=== PATIENT | male | born 1990 | race African-American/Black ===

== ENCOUNTER 2016-04-10 18:10 | Emergency (ER) | payer OTHER ==
--- NOTE | 2016-04-10 22:06 | EDDOCDS ---
Physician Documentation [facility] Name: Bradley Steele Age: 25 yrs Sex: Male : 1990 Arrival Date: 04/10/2016 Time: 18:10 Bed 30 Private MD: SCKelton JACKSON Disposition: 04/10 21:43 Critical Care: Critical care not applicable. pc Disposition: 04/10/16 21:45 Discharged to Home/Self Care. Impression: Anxiety disorder, unspecified, Conversion disorder with mixed symptom presentation. - Condition is Stable. - Discharge Instructions: Generalized Anxiety Disorder, Conversion Disorder. - Medication Reconciliation, Local Pharmacy Hours form. - Follow up: Kelton Rodriguez, Behavioral Health; When: Tomorrow; Reason: Recheck today's complaints, Continuance of care. - Problem is new. - Symptoms are unchanged. HPI: 19:06 This 25 yrs old Male presents to ER via Walkin/Carried/Asstd with pc complaints of Psych Problem. 19:06 The history is obtained from the patient. He has been started on clonazepam recently and now reports he sleep walks, carrying a knife. Of note, he has been diagnosed as a malingerer, with multiple complaints of seizures and black out episodes, all of which have been extensively evaluated and confirmed his psychogenic complaints/malingering. The patient has been recently seen by their primary care provider. Historical: - Allergies: no known allergies; - Home Meds: 1. clonazepam 0.5 mg Oral tab nightly 2. Lexapro 10 mg Oral tab 2 tabs once daily - PMHx: Anxiety; conversion disorder; PTSD; - PSHx: wisdom teeth; - The history from nurses notes was reviewed: and I agree with what is documented. - Social history: Smoking status: Patient states was never smoker of tobacco. No barriers to communication noted, The patient speaks fluent Estonian, Speaks appropriately for age. - Family history: Not pertinent. - : The pt / caregiver states he / she is not on anticoagulants. Home medication list is obtained from the patient. - Hospitalizations: : No recent hospitalization is reported. - Exposure Risk Screening:: None identified. - Immunization history:: All immunizations up-to-date. - Social history:: the patient is a non-smoker, the patient does not drink alcohol. ROS: 19:06 All systems are negative except as listed. The psychiatric and neurological components pc are also addressed in the HPI. Exam: 19:06 General Appearance: alert, no acute distress. pc 19:06 ENT: ear, nose and throat normal, pharynx normal. 19:06 Eyes: pupils equal, round and reactive to light, extraocular motions intact. 19:06 Neck: The exam reveals no acute abnormalities. ROM is normal and painless. No nuchal rigidity is noted.. 19:06 Respiratory: breathing is even and unlabored, breath sounds are normal. 19:06 Cardiovascular: regular pulse rate, regular heart rhythm, normal heart sounds, equal and full pulses bilaterally. 19:06 Abdomen: soft, non-tender, no organomegaly, normal bowel sounds. 19:06 Skin: skin color is normal, warm, dry. 19:06 Extremities: The extremities have a grossly normal appearance, are non-tender, without acute ROM abnormalities. 19:06 Neuro: alert, oriented to person, place and time, cranial nerves normal as tested, no motor deficits, no sensory deficits. 19:06 Psych: mood is normal, affect is appropriate. Vital Signs: 18:10 BP 121 / 58; Pulse 79; Resp 18 S; Temp 98.4(O); Pulse Ox 98% on R/A; Weight 104.33 kg / gr2 230.01 lbs (R); Height 5 ft. 10 in. (177.80 cm) (R); Pain 0/10; 22:03 BP 122 / 57; Pulse 78; Resp 20; Temp 98.2; Pulse Ox 99% on R/A; Pain 0/10; sls1 18:10 Body Mass Index 33.00 (104.33 kg, 177.80 cm) gr2 MDM: 19:06 Differential diagnosis: reported sleep walking after starting new medication. Plan: PFS pc to see, d/c med, f/u PCP in morning. 20:44 Financial registration complete. zo 20:57 [facility] Payment Agreement was scanned into [employer] and attached to record. zo 21:43 The patient has been medically cleared for psychiatric evaluation, admission and/or pc transfer. [employer] Personal Care Device Safe Act reporting: Reporting to the [employer] Personal [employer] Device Safe Act was not completed because the patient did not display any suicidal or homicidal ideation and was not considered a risk to self or others. Data reviewed: old medical records, vital signs, nurses notes. Test interpretation: none. The patient has been re-examined and re-evaluated. The clinical presentation did not require any ED treatment or interventions. Other consultation: The ED structural steel worker apprentice was notified and will evaluate the patient. 21:43 Disposition: The historical points, examination findings, and any diagnostic results pc supporting the provided diagnosis, were discussed with the patient or legal guardian. The need for outpatient follow up with the provider listed on their discharge instructions was discussed. They were encouraged to return to [facility], or the nearest ED, if symptoms worsen/persist, or for any other questions/concerns. 21:54 PSA Outpatient Referrals was scanned into [employer] and attached to record. cs Signatures: Amish Monreal MD MD pc Sharlow, Charlie, PSA PSA cs Carl Cabrera RN RN mlb1 Tess Crump Shannon, RN RN sls1 Josette Mcadams RN RN pml The chart was reviewed and I authenticate all verbal orders and agree with the evaluation and treatment provided.Attachments: 20:57 [facility] Payment Agreement zo MTDD
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
--- NOTE | 2016-04-12 23:06 | EDDOCDS ---
Physician Documentation [facility] Name: Bradley Steele Age: 25 yrs Sex: Male : 1990 Arrival Date: 04/10/2016 Time: 18:10 Bed 30 Private MD: SCKelton JACKSON Disposition: 04/10 21:43 Critical Care: Critical care not applicable. pc Disposition: 04/10/16 21:45 Discharged to Home/Self Care. Impression: Anxiety disorder, unspecified, Conversion disorder with mixed symptom presentation. - Condition is Stable. - Discharge Instructions: Generalized Anxiety Disorder, Conversion Disorder. - Medication Reconciliation, Local Pharmacy Hours form. - Follow up: Kelton Rodriguez, Behavioral Health; When: Tomorrow; Reason: Recheck today's complaints, Continuance of care. - Problem is new. - Symptoms are unchanged. HPI: 19:06 This 25 yrs old Male presents to ER via Walkin/Carried/Asstd with pc complaints of Psych Problem. 19:06 The history is obtained from the patient. He has been started on clonazepam recently and now reports he sleep walks, carrying a knife. Of note, he has been diagnosed as a malingerer, with multiple complaints of seizures and black out episodes, all of which have been extensively evaluated and confirmed his psychogenic complaints/malingering. The patient has been recently seen by their primary care provider. Historical: - Allergies: no known allergies; - Home Meds: 1. clonazepam 0.5 mg Oral tab nightly 2. Lexapro 10 mg Oral tab 2 tabs once daily - PMHx: Anxiety; conversion disorder; PTSD; - PSHx: wisdom teeth; - The history from nurses notes was reviewed: and I agree with what is documented. - Social history: Smoking status: Patient states was never smoker of tobacco. No barriers to communication noted, The patient speaks fluent Yakut, Speaks appropriately for age. - Family history: Not pertinent. - : The pt / caregiver states he / she is not on anticoagulants. Home medication list is obtained from the patient. - Hospitalizations: : No recent hospitalization is reported. - Exposure Risk Screening:: None identified. - Immunization history:: All immunizations up-to-date. - Social history:: the patient is a non-smoker, the patient does not drink alcohol. ROS: 19:06 All systems are negative except as listed. The psychiatric and neurological components pc are also addressed in the HPI. Exam: 19:06 General Appearance: alert, no acute distress. pc 19:06 ENT: ear, nose and throat normal, pharynx normal. 19:06 Eyes: pupils equal, round and reactive to light, extraocular motions intact. 19:06 Neck: The exam reveals no acute abnormalities. ROM is normal and painless. No nuchal rigidity is noted.. 19:06 Respiratory: breathing is even and unlabored, breath sounds are normal. 19:06 Cardiovascular: regular pulse rate, regular heart rhythm, normal heart sounds, equal and full pulses bilaterally. 19:06 Abdomen: soft, non-tender, no organomegaly, normal bowel sounds. 19:06 Skin: skin color is normal, warm, dry. 19:06 Extremities: The extremities have a grossly normal appearance, are non-tender, without acute ROM abnormalities. 19:06 Neuro: alert, oriented to person, place and time, cranial nerves normal as tested, no motor deficits, no sensory deficits. 19:06 Psych: mood is normal, affect is appropriate. Vital Signs: 18:10 BP 121 / 58; Pulse 79; Resp 18 S; Temp 98.4(O); Pulse Ox 98% on R/A; Weight 104.33 kg / gr2 230.01 lbs (R); Height 5 ft. 10 in. (177.80 cm) (R); Pain 0/10; 22:03 BP 122 / 57; Pulse 78; Resp 20; Temp 98.2; Pulse Ox 99% on R/A; Pain 0/10; sls1 18:10 Body Mass Index 33.00 (104.33 kg, 177.80 cm) gr2 MDM: 19:06 Differential diagnosis: reported sleep walking after starting new medication. Plan: PFS pc to see, d/c med, f/u PCP in morning. 20:44 Financial registration complete. zo 20:57 [facility] Payment Agreement was scanned into [employer] and attached to record. zo 21:43 The patient has been medically cleared for psychiatric evaluation, admission and/or pc transfer. [employer] Safe Act reporting: Reporting to the [employer] Safe Act was not completed because the patient did not display any suicidal or homicidal ideation and was not considered a risk to self or others. Data reviewed: old medical records, vital signs, nurses notes. Test interpretation: none. The patient has been re-examined and re-evaluated. The clinical presentation did not require any ED treatment or interventions. Other consultation: The ED anvil worker was notified and will evaluate the patient. 21:43 Disposition: The historical points, examination findings, and any diagnostic results pc supporting the provided diagnosis, were discussed with the patient or legal guardian. The need for outpatient follow up with the provider listed on their discharge instructions was discussed. They were encouraged to return to [facility], or the nearest ED, if symptoms worsen/persist, or for any other questions/concerns. 21:54 PSA Outpatient Referrals was scanned into [employer] and attached to record. cs Signatures: Amish Monreal MD MD pc Sharlow, Charlie, PSA PSA cs Carl Cabrera RN RN mlb1 Tess Crump Shannon, RN RN sls1 Josette Mcadams RN RN pml The chart was reviewed and I authenticate all verbal orders and agree with the evaluation and treatment provided.Attachments: 20:57 [facility] Payment Agreement zo Chart Complete MTDD
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
--- NOTE | 2016-04-12 23:06 | EDDOCDS ---
Physician Documentation [facility] Name: Bradley Steele Age: 25 yrs Sex: Male : 1990 Arrival Date: 04/10/2016 Time: 18:10 Bed 30 Private MD: MAKelton JACKSON Disposition: 04/10 21:43 Critical Care: Critical care not applicable. pc Disposition: 04/10/16 21:45 Discharged to Home/Self Care. Impression: Anxiety disorder, unspecified, Conversion disorder with mixed symptom presentation. - Condition is Stable. - Discharge Instructions: Generalized Anxiety Disorder, Conversion Disorder. - Medication Reconciliation, Local Pharmacy Hours form. - Follow up: Kelton Rodriguez, Behavioral Health; When: Tomorrow; Reason: Recheck today's complaints, Continuance of care. - Problem is new. - Symptoms are unchanged. HPI: 19:06 This 25 yrs old Male presents to ER via Walkin/Carried/Asstd with pc complaints of Psych Problem. 19:06 The history is obtained from the patient. He has been started on clonazepam recently and now reports he sleep walks, carrying a knife. Of note, he has been diagnosed as a malingerer, with multiple complaints of seizures and black out episodes, all of which have been extensively evaluated and confirmed his psychogenic complaints/malingering. The patient has been recently seen by their primary care provider. Historical: - Allergies: no known allergies; - Home Meds: 1. clonazepam 0.5 mg Oral tab nightly 2. Lexapro 10 mg Oral tab 2 tabs once daily - PMHx: Anxiety; conversion disorder; PTSD; - PSHx: wisdom teeth; - The history from nurses notes was reviewed: and I agree with what is documented. - Social history: Smoking status: Patient states was never smoker of tobacco. No barriers to communication noted, The patient speaks fluent Greenlandic, Speaks appropriately for age. - Family history: Not pertinent. - : The pt / caregiver states he / she is not on anticoagulants. Home medication list is obtained from the patient. - Hospitalizations: : No recent hospitalization is reported. - Exposure Risk Screening:: None identified. - Immunization history:: All immunizations up-to-date. - Social history:: the patient is a non-smoker, the patient does not drink alcohol. ROS: 19:06 All systems are negative except as listed. The psychiatric and neurological components pc are also addressed in the HPI. Exam: 19:06 General Appearance: alert, no acute distress. pc 19:06 ENT: ear, nose and throat normal, pharynx normal. 19:06 Eyes: pupils equal, round and reactive to light, extraocular motions intact. 19:06 Neck: The exam reveals no acute abnormalities. ROM is normal and painless. No nuchal rigidity is noted.. 19:06 Respiratory: breathing is even and unlabored, breath sounds are normal. 19:06 Cardiovascular: regular pulse rate, regular heart rhythm, normal heart sounds, equal and full pulses bilaterally. 19:06 Abdomen: soft, non-tender, no organomegaly, normal bowel sounds. 19:06 Skin: skin color is normal, warm, dry. 19:06 Extremities: The extremities have a grossly normal appearance, are non-tender, without acute ROM abnormalities. 19:06 Neuro: alert, oriented to person, place and time, cranial nerves normal as tested, no motor deficits, no sensory deficits. 19:06 Psych: mood is normal, affect is appropriate. Vital Signs: 18:10 BP 121 / 58; Pulse 79; Resp 18 S; Temp 98.4(O); Pulse Ox 98% on R/A; Weight 104.33 kg / gr2 230.01 lbs (R); Height 5 ft. 10 in. (177.80 cm) (R); Pain 0/10; 22:03 BP 122 / 57; Pulse 78; Resp 20; Temp 98.2; Pulse Ox 99% on R/A; Pain 0/10; sls1 18:10 Body Mass Index 33.00 (104.33 kg, 177.80 cm) gr2 MDM: 19:06 Differential diagnosis: reported sleep walking after starting new medication. Plan: PFS pc to see, d/c med, f/u PCP in morning. 20:44 Financial registration complete. zo 20:57 [facility] [place] Agreement was scanned into [employer] and attached to record. zo 21:43 The patient has been medically cleared for psychiatric evaluation, admission and/or pc transfer. [employer] Safe Act reporting: Reporting to the [employer] Safe Act was not completed because the patient did not display any suicidal or homicidal ideation and was not considered a risk to self or others. Data reviewed: old medical records, vital signs, nurses notes. Test interpretation: none. The patient has been re-examined and re-evaluated. The clinical presentation did not require any ED treatment or interventions. Other consultation: The ED damper worker was notified and will evaluate the patient. 21:43 Disposition: The historical points, examination findings, and any diagnostic results pc supporting the provided diagnosis, were discussed with the patient or legal guardian. The need for outpatient follow up with the provider listed on their discharge instructions was discussed. They were encouraged to return to [facility], or the nearest ED, if symptoms worsen/persist, or for any other questions/concerns. 21:54 PSA Outpatient Referrals was scanned into [employer] and attached to record. cs Signatures: Amish Monreal MD MD pc Sharlow, Charlie, PSA PSA cs Carl Caberra RN RN mlb1 Tess Crump Shannon, RN RN sls1 Josette Mcadams RN RN pml The chart was reviewed and I authenticate all verbal orders and agree with the evaluation and treatment provided.Attachments: 20:57 [facility] [place] Agreement zo Chart Complete MTDD
== END 2016-04-10 22:05 | disposition home or self-care (01) ==
LOC: M ED 18:10
DX: F41.9 Anxiety disorder, unspecified (principal); F44.7 Conversion disorder with mixed symptom presentation; F43.10 Post-traumatic stress disorder, unspecified; Z79.899 Other long term (current) drug therapy

== ENCOUNTER → 2016-04-13 | Outpatient (REF) | payer OTHER | LOC: M SFHCLERA 19:28 | PROVIDERS: ATTEND Nurse Practitioner Family | DX: J02.9 Acute pharyngitis, unspecified (principal) ==

== ENCOUNTER 2016-05-23 10:12 | Emergency (ER) | payer OTHER ==
[~2016-05-23] VITALS: Ht 177.8 cm; Wt 108.9 kg
[2016-05-23 10:15] VITALS: BP 118/60
[2016-05-23] MEDS ORDERED: SERO1TAB3 PO (10:23)
[2016-05-23] MEDS ORDERED: PREG25CA PO (10:23)
[2016-05-23] MEDS ORDERED: LEXA1TAB2 PO (10:23)
== END 2016-05-23 10:52 | disposition home or self-care (01) ==
LOC: EDBD 10:12 → M ED 10:37
DX: F44.4 Conversion disorder with motor symptom or deficit (principal); F43.10 Post-traumatic stress disorder, unspecified; F41.9 Anxiety disorder, unspecified; F32.9 Major depressive disorder, single episode, unspecified; Z79.899 Other long term (current) drug therapy

== ENCOUNTER 2016-06-04 06:46 | Emergency (ER) | payer OTHER ==
[~2016-06-04] VITALS: Ht 177.8 cm; Wt 113.4 kg
[~2016-06-04 06:46] MED LIST: LEXA1TAB2 PO; PREG25CA PO; SERO1TAB3 PO
[2016-06-04] MEDS ORDERED: NS 1,000 ML IV ONE (07:30)
--- NOTE | 2016-06-04 08:09 | REP ---
PA and lateral chest: Comparisons 01/10/2016. The lung barrios are clear. The cardiac size is normal The olivia, mediastinum, and bony thorax are unremarkable. Impression: Negative PA and lateral chest. Signed by Brody Oliveira MD 06/04/2016 08:00 A
[2016-06-04 08:16] LABS: BASO % 0.4 % (0.0-1.0); EOS # 0.2 K/mm3 (0.0-0.50); EOS % 3.6 % (0.0-3.0); LARGE UNSTAINED CELL # 0.1 K/mm3 (0.0-0.4); LARGE UNSTAINED CELL % 1.7 % (0.0-4.0); LYMPH # 1.3 K/mm3 (1.5-6.5); LYMPH % 23.1 % (24.0-44.0); MEAN CORPUSCULAR HEMOGLOBIN 28.9 pg (27.0-33.0); MEAN CORPUSCULAR VOLUME 90.4 fl (80.0-96.0); MONO # 0.4 K/mm3 (0.0-0.8); MONO % 8.1 % (0.0-5.0); NEUTROPHILS # 3.4 K/mm3 (1.8-7.7); PLATELET COUNT, AUTOMATED 193 k/mm3 (150-450); RED CELL DISTRIBUTION WIDTH 13.1 % (11.5-14.5); WHITE BLOOD COUNT 5.3 K/mm3 (4.0-10.0)
--- NOTE | 2016-06-04 08:23 | REP ---
CT of the brain without IV contrast: Comparison is 12/15/2015. There is no hemorrhage. The cortical stripe is unremarkable. The ventricles are normal size and midline. There is no edema, mass effect or midline shift. The visualized paranasal sinuses and mastoid air cells are clear. Impression: Essentially negative CT study of the brain. There is no hemorrhage, acute infarct or mass. No interval change. Signed by Brody Oliveira MD 06/04/2016 08:15 A
[2016-06-04] MEDS ORDERED: ACETAMINOPHEN 325 MG TAB PO ONE (08:30)
--- NOTE | 2016-06-04 08:33 | REP ---
Maxillofacial CT: There is no nasal bone fracture. There is no orbit fracture. There is no zygomatic arch fracture. The visualized paranasal sinuses are unremarkable. The mastoid air cells are clear. There is no mandible fracture. Impression: There is no maxillofacial fracture. Signed by Brody Oliveira MD 06/04/2016 08:25 A
[2016-06-04 08:49] LABS: ALBUMIN 3.3 GM/DL (3.2-5.2); ALBUMIN/GLOBULIN RATIO 0.89 (1.00-1.93); ALKALINE PHOSPHATASE 52 U/L (45-117); ALT/SGPT 33 U/L (12-78); ANION GAP 6 MEQ/L (8-16); AST/SGOT 21 U/L (15-37); BILIRUBIN,DIRECT 0.1 MG/DL (0.0-0.2); BILIRUBIN,TOTAL 0.4 MG/DL (0.2-1.0); BLOOD UREA NITROGEN 12 MG/DL (7-18); CALCIUM LEVEL 8.3 MG/DL (8.5-10.1); CARBON DIOXIDE LEVEL 30 MEQ/L (21-32); CHLORIDE LEVEL 103 MEQ/L (98-107); CREATININE FOR GFR 0.98 MG/DL (0.70-1.30); GLOMERULAR FILTRATION RATE > 60.0 (>60); GLUCOSE, FASTING 96 MG/DL (70-105); SODIUM LEVEL 139 MEQ/L (136-145)
[2016-06-04 11:33] LABS: METHADONE URINE NEGATIVE (NEGATIVE)
[2016-06-04 11:56] VITALS: BP 115/69
--- NOTE | 2016-06-04 21:42 | ECGEPIP ---
Stationary ECG Study [facility] - ED Test Date: 2016-06-04 Pat Name: ROBERTA LUA Department: Room: - Gender: M Alcohol Rubber: JAngela : 1990 Requested By: FAREED HERNANDEZ PA-C. Order Number: [id number] Reading MD: Ella Infante Measurements Intervals [place] Rate: 51 P: 51 VT: 173 QRS: 81 QRSD: 98 T: 16 QT: 412 QTc: 380 Interpretive Statements SINUS BRADYCARDIA SIMILAR 01/31/16 Electronically Signed On 06-04-2016 21:42:06 EDT by Ella Infante
== END 2016-06-04 11:57 | disposition home or self-care (01) ==
LOC: M ED 07:45
DX: M79.1 Myalgia (principal); F44.4 Conversion disorder with motor symptom or deficit
CPT/HCPCS: 70450; 70486; 71020; 80048; 80076; 80306; 81001; 82550; 82553; 84443; 85025; 93005; 93041; 94760; 96360; 96361; 99285; G0480

== ENCOUNTER 2016-06-06 07:58 | Emergency (ER) | payer OTHER ==
[2016-06-06 08:48] VITALS: BP 133/61
== END 2016-06-06 08:49 | disposition home or self-care (01) ==
LOC: EDBD 07:58 → M ED 08:25
DX: F44.4 Conversion disorder with motor symptom or deficit (principal)

== ENCOUNTER 2016-06-19 06:35 | Emergency (ER) | payer OTHER ==
[2016-06-19] MEDS ORDERED: CLON0.5T PO (06:46)
[2016-06-19] MEDS ORDERED: NS 1,000 ML IV ONE (07:30)
[2016-06-19 07:44] LABS: ALBUMIN 3.6 GM/DL (3.2-5.2); ALBUMIN/GLOBULIN RATIO 0.97 (1.00-1.93); ALKALINE PHOSPHATASE 49 U/L (45-117); ALT/SGPT 31 U/L (12-78); ANION GAP 6 MEQ/L (8-16); AST/SGOT 33 U/L (15-37); BILIRUBIN,DIRECT < 0.1 MG/DL (0.0-0.2); BILIRUBIN,TOTAL 0.3 MG/DL (0.2-1.0); BLOOD UREA NITROGEN 17 MG/DL (7-18); CALCIUM LEVEL 8.3 MG/DL (8.5-10.1); CARBON DIOXIDE LEVEL 29 MEQ/L (21-32); CHLORIDE LEVEL 103 MEQ/L (98-107); CREATININE FOR GFR 0.95 MG/DL (0.70-1.30); GLOMERULAR FILTRATION RATE > 60.0 (>60); GLUCOSE, FASTING 89 MG/DL (70-105); POTASSIUM SERUM 3.8 MEQ/L (3.5-5.1); SODIUM LEVEL 138 MEQ/L (136-145); TOTAL PROTEIN 7.3 GM/DL (6.4-8.2)
[2016-06-19 11:26] LABS: METHADONE URINE NEGATIVE (NEGATIVE)
[2016-06-19 11:45] VITALS: BP 116/66
[2016-06-19] MEDS ORDERED: IBUPROFEN 600 MG TAB PO ONE (11:45)
== END 2016-06-19 11:58 | disposition home or self-care (01) ==
LOC: EDBD 06:35 → M ED 08:04
DX: F44.5 Conversion disorder with seizures or convulsions (principal)
CPT/HCPCS: 80048; 80076; 80306; 81002; 82550; 99284; G0480

== ENCOUNTER 2016-06-20 07:47 | Emergency (ER) | payer OTHER ==
[~2016-06-20] VITALS: Ht 182.9 cm; Wt 99.8 kg
[~2016-06-20 07:47] MED LIST changes: +CLON0.5T PO
[2016-06-20] MEDS ORDERED: IBUPROFEN 600 MG TAB PO ONE (08:30)
[2016-06-20 09:56] VITALS: BP 124/62
== END 2016-06-20 09:57 | disposition home or self-care (01) ==
LOC: EDBD 07:47 → M ED 08:07
DX: F44.5 Conversion disorder with seizures or convulsions (principal)

== ENCOUNTER 2016-10-14 12:53 | Emergency (ER) | payer OTHER ==
[~2016-10-14] VITALS: Ht 177.8 cm; Wt 120.4 kg
[2016-10-14] MEDS ORDERED: MELA3TAB49 PO (13:02)
[2016-10-14] MEDS ORDERED: KETOROLAC 60 MG/2 ML VIAL (J1885) IM ONE (14:00)
--- NOTE | 2016-10-14 14:45 | REP ---
Bilateral inguinal canal ultrasonography for hernia: Ultrasonography of the inguinal canals is performed bilaterally including ultrasonography with and without Valsalva. There are normal soft tissues bilaterally. There is no evidence of hernia on the right on the left. Signed by Brody Oliveira MD 10/14/2016 02:37 P
[2016-10-14] MEDS ORDERED: NAPR500T PO (14:48)
[2016-10-14 14:52] VITALS: BP 132/69
== END 2016-10-14 15:18 | disposition home or self-care (01) ==
LOC: M ED 12:53
DX: R10.9 Unspecified abdominal pain (principal)
CPT/HCPCS: 76857; 96372; 99282; J1885

== ENCOUNTER 2016-10-16 07:41 | Emergency (ER) | payer OTHER ==
[~2016-10-16] VITALS: Ht 177.8 cm; Wt 120.5 kg
[~2016-10-16 07:41] MED LIST changes: +MELA3TAB49 PO; +NAPR500T PO
[2016-10-16 07:52] VITALS: BP 122/70
[2016-10-16] MEDS ORDERED: DICL1GEL3 TD (19:55)
[2016-10-16] MEDS ORDERED: TYLE325T5 PO (19:55)
== END 2016-10-16 08:38 | disposition home or self-care (01) ==
LOC: M ED 07:41
DX: F44.9 Dissociative and conversion disorder, unspecified (principal); Z79.899 Other long term (current) drug therapy

== ENCOUNTER 2016-10-16 15:17 | Inpatient (IN) | payer OTHER ==
[~2016-10-16] VITALS: Ht 177.8 cm; Wt 117.8 kg
[2016-10-16 15:58] LABS: MEAN CORPUSCULAR HEMOGLOBIN 29.4 pg (27.0-33.0); MEAN CORPUSCULAR VOLUME 89.1 fl (80.0-96.0); WHITE BLOOD COUNT 6.8 K/mm3 (4.0-10.0)
[2016-10-16 16:14] LABS: METHADONE URINE NEGATIVE (NEGATIVE)
--- NOTE | 2016-10-16 16:14 | ECGEPIP ---
Stationary ECG Study [facility] - ED Test Date: 2016-10-16 Pat Name: ROBERTA LUA Department: Room: - Gender: M Behavioral Health Aide: reyna : 1990 Requested By: KT WINSTON Order Number: [id number] Reading MD: Amish Monreal Measurements Intervals [place] Rate: 73 P: 43 ND: 157 QRS: 70 QRSD: 93 T: 9 QT: 367 QTc: 405 Interpretive Statements SINUS RHYTHM NONSPECIFIC ST ELEVATION SIMILAR TO 06/04/16 Electronically Signed On 10-16-2016 16:13:58 EDT by Amish Monreal
[2016-10-16 16:29] LABS: ANION GAP 6 MEQ/L (8-16); AST/SGOT 25 U/L (15-37); BLOOD UREA NITROGEN 12 MG/DL (7-18); CALCIUM LEVEL 9.2 MG/DL (8.5-10.1); CARBON DIOXIDE LEVEL 26 MEQ/L (21-32); CHLORIDE LEVEL 109 MEQ/L (98-107); CREATININE FOR GFR 1.16 MG/DL (0.70-1.30); GLOMERULAR FILTRATION RATE > 60.0 (>60); GLUCOSE, FASTING 98 MG/DL (70-105); POTASSIUM SERUM 4.4 MEQ/L (3.5-5.1); SODIUM LEVEL 141 MEQ/L (136-145)
[2016-10-16 16:30] LABS: ALBUMIN 3.9 GM/DL (3.2-5.2); ALBUMIN/GLOBULIN RATIO 0.89 (1.00-1.93); ALKALINE PHOSPHATASE 64 U/L (45-117); ALT/SGPT 34 U/L (12-78); BILIRUBIN,DIRECT < 0.1 MG/DL (0.0-0.2); BILIRUBIN,TOTAL 0.2 MG/DL (0.2-1.0); TOTAL PROTEIN 8.3 GM/DL (6.4-8.2)
[2016-10-16] MEDS ORDERED: TYLE325T5 PO (19:55)
[2016-10-16] MEDS ORDERED: DICL1GEL3 TD (19:55)
[2016-10-16] MEDS ORDERED: AMMONIA AROMATIC INHALANT (FLOOR STOCK) As Ordered ONE (20:40)
[2016-10-17 03:38] VITALS: BP 139/76
[2016-10-17] MEDS ORDERED: MAALOX 30 ML SUSP *UDC PO PRN (05:45)
[2016-10-17] MEDS ORDERED: traZODone 50 MG TAB PO PRN (05:45)
[2016-10-17] MEDS ORDERED: ACETAMINOPHEN TAB 650MG DOSE (2X325MG) PO PRN (05:45)
[2016-10-17] MEDS ORDERED: MOM 30ML SUSPENSION UDC PO PRN (05:45)
[2016-10-17] MEDS: VITAMIN A & D OINTMENT 60 GM TOP SCH ×3 (11:08→22:00)
--- NOTE | 2016-10-17 11:51 | HPEPDOC ---
Medical History and Physical Date of Admission Oct 17, 2016 at 00:58 History and Physical PCP: [facility] ATTENDING: Dr. Yosi Moore HPI: 25yoM admitted to [facility] for unspecified depressive disorder, being medically examined today. No acute medical complaints today. Denies any fevers, chills, weakness, fatigue, BECERRA, CP, SOB, cough, palpitations, abdominal pain, N/V /D or changes in bowel or bladder habits. PMHx: depression anxiety PTSD TMJ chronic neck pain tendonitis Rt elbow conversion disorder. pseudoseizure Follows with [facility]. night terror PSHX: wisdom teeth extraction SOCHX: Resides in: [place], from [place]. 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 Children: Alive, well ROS: As noted in HPI, otherwise 11pt ROS of systems reviewed and unremarkable. PE: GEN: 25yoM, appears stated age. Well-nourished, well developed. No acute distress. Alert and oriented x 3. Pleasant, interactive. HEENT: Normocephalic, atraumatic. Pupils are equal, round, and reactive to light. Extraocular movements are intact. No nystagmus appreciated. Sclera are nonicteric. Conjunctiva without injection. Nose midline. Nasal turbinates without bogginess. EACs both patent BL. TMs both visualized and sarmiento with good cone of light, no bulging or erythema. No facial asymmetry. Moist mucous membranes. Pharynx pink and moist, no cobblestoning. Neck supple, trachea midline. No lymphadenopathy or thyromegaly appreciated. CHEST: Regular rate and rhythm, +S1, +S2 LUNGS: Clear to auscultation bilaterally. No wheezes, rales, or rhonchi. Breathing appears symmetric and easy. Patient is speaking in full sentences. No accessory muscle use. ABD: Round, soft, non-tender, non-distended. +Bowel sounds throughout. No rebound or guarding. No costovertebral angle tenderness. EXT: Pulses 2+ bilaterally dorsalis pedis and radial. No lower extremity edema appreciated. SKIN: Faison, dry, warm. Capillary refill <2sec. No rashes. NEURO: Alert and oriented x 3. Cranial nerves III-XII are intact. No focal deficits appreciated. EK10/16/[address] ELEVATION SIMILAR TO 06/04/16 A&P: 25yoM admitted to [facility] for unspecified depressive disorder 1. Psych. Plan per Psychiatry. EKG on file. 2. Nicotine dependence. Patch available. 3. Borderline EKG. No cardiac signs or symptoms appreciated on exam, follow with PCP. 4. Follow up with PCP on discharge. 5. H/O pseudoseizure. Request copy of records from [facility]. 6. Abnormal TSH. Recheck TFTs in a.m. 7. Staff member [place] present throughout exam. Vital Signs Vital Signs Date Time Temp Pulse Resp B/P (MAP) Pulse Ox O2 Delivery O2 Flow Rate FiO2 10/17/16 03:38 97.7 62 18 139/76 (97) 10/16/16 23:04 99 10/16/16 19:15 Room Air Laboratory Data Labs 24H Laboratory Tests 2 10/16/16 15:29: Urine Amphetamines Screen NEGATIVE, Urine Benzodiazepines Screen NEGATIVE, Urine Opiates Screen NEGATIVE, Urine Methadone Screen NEGATIVE, Urine Barbiturates Screen NEGATIVE, Urine Phencyclidine Screen NEGATIVE, Urine Cocaine Metabolite Screen NEGATIVE, Urine Cannabinoids Screen NEGATIVE 10/16/16 15:48: Anion Gap 6L, Glomerular Filtration Rate > 60.0, Calcium Level 9.2, Aspartate Amino Transf (AST/SGOT) 25, Alanine Aminotransferase (ALT/SGPT) 34, Alkaline Phosphatase 64, Total Bilirubin 0.2, Direct Bilirubin < 0.1, Total Protein 8.3H , Albumin 3.9, Albumin/Globulin Ratio 0.89L, Thyroid Stimulating Hormone (TSH) 0.287L, Salicylates Level < 1.7L, Acetaminophen Level < 2.0L, Ethyl Alcohol Level < 0.003 CBC/BMP Laboratory Tests 10/16/16 15:48 Red Blood Count 5.16, Mean Corpuscular Volume 89.1, Mean Corpuscular Hemoglobin 29.4, Mean Corpuscular Hemoglobin Concent 33.0, Red Cell Distribution Width 13.0 Home Medications Scheduled (Melatonin) 3 Mg Tab, 6 MG PO QHS Escitalopram Oxalate (Lexapro) 20 Mg Tab, 20 MG PO QHS Scheduled PRN (Diclofenac Sodium) 1 % Gel, 1 DOSE TD QID PRN for PAIN USES ON RIGHT ELBOW Acetaminophen (Tylenol) 325 Mg Tab, 650 MG PO Q4H PRN for HEADACHE OR PAIN Allergies Coded Allergies: No Known Allergies (Unverified , 06/19/16) Rosa Gaffney Oct 17, 2016 11:51
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
[2016-10-17 18:00] VITALS: BP 130/78
[2016-10-17] MEDS: RAMELTEON 8 MG TAB (ROZEREM) PO SCH (21:59)
[2016-10-18 06:50] VITALS: BP 113/57
[2016-10-18 08:34] LABS: THYROXINE (T4) 7.3 UG/DL (4.5-12.0)
[2016-10-18] MEDS: VITAMIN A & D OINTMENT 60 GM TOP SCH ×3 (08:51→21:48)
[2016-10-18] MEDS ORDERED: ESCITALOPRAM OXALATE 10 MG TAB (LEXAPRO) PO SCH (09:00)
[2016-10-18 18:00] VITALS: BP 151/80
[2016-10-18] MEDS: ESCITALOPRAM OXALATE 10 MG TAB (LEXAPRO) PO SCH (21:47)
[2016-10-18] MEDS: RAMELTEON 8 MG TAB (ROZEREM) PO SCH (21:47)
[2016-10-19 06:32] VITALS: BP 125/63
[2016-10-19] MEDS: VITAMIN A & D OINTMENT 60 GM TOP SCH ×3 (09:00→21:16)
[2016-10-19 12:00] VITALS: BP 133/59
[2016-10-19 18:00] VITALS: BP 115/59
[2016-10-19] MEDS: RAMELTEON 8 MG TAB (ROZEREM) PO SCH (21:40)
[2016-10-19] MEDS: ESCITALOPRAM OXALATE 10 MG TAB (LEXAPRO) PO SCH (21:40)
[2016-10-20 06:55] VITALS: BP 159/71
[2016-10-20] MEDS: VITAMIN A & D OINTMENT 60 GM TOP SCH ×3 (08:47→21:00)
[2016-10-20 12:00] VITALS: BP 118/56
[2016-10-20 18:00] VITALS: BP 137/72
--- NOTE | 2016-10-20 18:53 | MHIPN ---
DATE: 10/18/2016 Patient was brought to the emergency department because he ingested approximately 1500 mg of Lyrica. According to emergency room report, patient texted his friends about ingesting 1500 mg of Lyrica. Patient seems to have no recollection of that. SUBJECTIVE: Patient reports feeling well. Continues to deny suicidal or homicidal ideation. Denies auditory or visual hallucinations and denies delusions. Reports sleeping well. Good appetite. Good level of energy. He has no concerns. Does not report side effects from medications. His only request is to have Lexapro at night instead of the daytime. He is concerned about his neck. He has had a little bit of pain and asks to be seen by physical therapy. OBJECTIVE: Patient is alert and oriented times three. His speech is spontaneous and fluent. His thought process is intact. His thought content is coherent. Abstract reasoning and computation were not evaluated. Associations are good. He denies suicidal or homicidal ideation. Denies psychotic thoughts. Denies thought delusions. Denies thoughts of self-harm or harming others. His judgment is fair. His insight is fair. Recent and remote memory are intact. Attention and concentration are fair. Mood slightly anxious. Affect congruent to mood. DIAGNOSES: 1. Posttraumatic stress disorder. 2. Conversion disorder. ASSESSMENT: Patient does not look as happy as he was yesterday. He looks a little bit worried today but continues to deny thoughts of self-harm or harming other people. He is not psychotic. His Lexapro will be changed at bedtime. He will continue with Rozerem because there is no melatonin at the hospital. Will followup.
[2016-10-20] MEDS: ESCITALOPRAM OXALATE 10 MG TAB (LEXAPRO) PO SCH (22:11)
[2016-10-20] MEDS: RAMELTEON 8 MG TAB (ROZEREM) PO SCH (22:11)
[2016-10-21 06:53] VITALS: BP 112/58
[2016-10-21] MEDS: VITAMIN A & D OINTMENT 60 GM TOP SCH ×3 (08:42→20:35)
[2016-10-21 18:00] VITALS: BP 134/78
--- NOTE | 2016-10-21 21:14 | MHIPN ---
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 Posttraumatic stress disorder (PTSD). 2. Conversion disorder. SUBJECTIVE: The patient reports he was visited by the physical therapy team, but they told him there was not much that could be done at the hospital at this time for his lesion of C5-C6. They recommended him basically what he has been doing at [facility], doing muscle stretching, and he says he does it while he goes into the sauna. He says it has been hard for him to be away from his , but he knows he can handle it for two more days until he gets discharged on Saturday. OBJECTIVE: The patient is alert and oriented times three, cooperative, looks less worried than yesterday. His speech is spontaneous and fluid. His thought process is intact, his thought content is coherent. He denies suicidal or homicidal ideations, denies thought delusions and denies auditory or visual hallucinations. His memory is intact, attention and concentration are good. Insight and judgment are fair. ASSESSMENT: The patient is not depressed, but he has been kept at the hospital for observation. He reports he has not had episodes at the hospital. He calls "my episodes" to those periods where he goes blank and cannot remember anything afterwards. He says he feels that he has not had them because he has been doing better, is calmer, less anxious at the inpatient mental health unit. The patient will continue on the same medications and most likely will be discharged on Saturday. We will followup.
[2016-10-21] MEDS: ESCITALOPRAM OXALATE 10 MG TAB (LEXAPRO) PO SCH (22:05)
[2016-10-21] MEDS: RAMELTEON 8 MG TAB (ROZEREM) PO SCH (22:05)
[2016-10-22 06:29] VITALS: BP 110/55
[2016-10-22] MEDS: VITAMIN A & D OINTMENT 60 GM TOP SCH (09:00)
--- NOTE | 2016-10-22 09:42 | MHIPN ---
DATE: 10/20/2016 CHIEF COMPLAINT: Feels good. SUBJECTIVE: Seen for followup. Indicates has been feeling good, less depressed, more optimistic. Says sleeps and eats well. MENTAL STATUS EXAMINATION: Neat and cooperative. No agitation. No psychomotor retardation. Affect broad, coherent. Denies any thoughts of harming himself or anyone else. Currently, no evidence of any psychosis. Cognition is grossly intact. Judgment improved, as is insight possibly. ASSESSMENT: Posttraumatic stress disorder. Conversion disorder history. PLAN: Continue current care and observations, encourage participation in activities in the unit. He request his shoes, actually that is fine. Will also continue with his current medicines, Lexapro 20 mg daily, Rozerem 8 mg at night. VITAL SIGNS: Blood pressure 118/56, pulse 56, temperature 98.2.
[2016-10-22] MEDS ORDERED: ROZE8TAB16 PO (10:04)
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
--- NOTE | 2016-10-23 06:02 | MHIPN ---
DATE: 10/21/2016 CHIEF COMPLAINT: Says feels good. SUBJECTIVE: Seen for followup. Indicates has generally been feeling good, but that he just had a phone call from his indicating that she is spotting a bit. She is , and apparently she has had a couple of miscarriages in the past couple of years. He says she cannot go to the doctor's at the moment, as there is no babysitting arrangements, this being the weekend. He hopes, anticipates, it will settle down. 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 Sleep has been good. He has been feeling better, less anxious, less depressed overall. MENTAL STATUS EXAMINATION: He is neat. He is cooperative. No agitation, no psychomotor retardation. Affect is broad. He is coherent. Denies any thoughts of harming himself or anyone else. No evidence of any psychosis. Cognition is grossly intact. Judgment is good. Insight is improved. ASSESSMENT: 1. Posttraumatic stress disorder (PTSD). 2. Conversion disorder by history. PLAN: Continue current care and observation, and encourage participate in activities in the unit. He plans to contact his later today, and find out how she is progressing. He is to see his treatment team tomorrow. VITAL SIGNS: Blood pressure 112/58, pulse 57, temperature 97.
== END 2016-10-22 12:45 | disposition home or self-care (01) | DRG 882 ==
LOC: M ED 15:17 → M ED INP 10-17 00:58 → M PSY 10-17 03:11
PROVIDERS: ADMIT Psychiatry & Neurology Psychiatry; ATTEND Psychiatry & Neurology Psychiatry
DX: F43.10 Post-traumatic stress disorder, unspecified (principal); F44.5 Conversion disorder with seizures or convulsions; R94.6 Abnormal results of thyroid function studies; R94.31 Abnormal electrocardiogram [ECG] [EKG]; Z79.899 Other long term (current) drug therapy

== ENCOUNTER 2017-07-19 22:28 | Emergency (ER) | payer OTHER ==
[2017-07-19 23:32] LABS: BASO % 0.4 % (0.0-1.0); EOS # 0.1 10^3/uL (0.0-0.50); EOS % 1.5 % (0.0-3.0); HEMATOCRIT 42.7 % (42.0-52.0); HEMOGLOBIN 13.8 g/dl (13.5-17.5); IMMATURE GRANULOCYTE % 0.3 % (0-3.0); LYMPH # 1.1 10^3/uL (1.5-6.5); LYMPH % 15.9 % (24.0-44.0); MEAN CORPUSCULAR HEMOGLOBIN 27.8 pg (27.0-33.0); MEAN CORPUSCULAR HGB CONC 32.3 g/dl (32.0-36.5); MEAN CORPUSCULAR VOLUME 85.9 fl (80.0-96.0); MONO # 0.7 10^3/uL (0.0-0.8); MONO % 10.1 % (0.0-5.0); NEUTROPHILS # 5.1 10^3/uL (1.8-7.7); NEUTROPHILS % 71.8 % (36.0-66.0); PLATELET COUNT, AUTOMATED 218 10^3/uL (150-450); RED BLOOD COUNT 4.97 10^6/uL (4.30-6.10); RED CELL DISTRIBUTION WIDTH 12.9 % (11.5-14.5); WHITE BLOOD COUNT 7.1 10^3/uL (4.0-10.0)
[2017-07-19 23:44] LABS: ALBUMIN 3.9 GM/DL (3.2-5.2); ALBUMIN/GLOBULIN RATIO 0.93 (1.00-1.93); ALKALINE PHOSPHATASE 53 U/L (45-117); ALT/SGPT 56 U/L (12-78); ANION GAP 6 MEQ/L (8-16); AST/SGOT 44 U/L (7-37); BILIRUBIN,DIRECT < 0.1 MG/DL (0.0-0.2); BILIRUBIN,TOTAL 0.2 MG/DL (0.2-1.0); BLOOD UREA NITROGEN 17 MG/DL (7-18); CALCIUM LEVEL 8.9 MG/DL (8.5-10.1); CARBON DIOXIDE LEVEL 28 MEQ/L (21-32); CHLORIDE LEVEL 109 MEQ/L (98-107); CREATININE FOR GFR 1.03 MG/DL (0.70-1.30); GLOMERULAR FILTRATION RATE > 60.0 (>60); GLUCOSE, FASTING 101 MG/DL (70-100); MAGNESIUM LEVEL 2.2 MG/DL (1.8-2.4); PHOSPHORUS LEVEL 3.6 MG/DL (2.5-4.9); POTASSIUM SERUM 3.9 MEQ/L (3.5-5.1); SODIUM LEVEL 143 MEQ/L (136-145); TOTAL PROTEIN 8.1 GM/DL (6.4-8.2)
== END 2017-07-20 03:33 | disposition left against medical advice (07) ==
LOC: M ED 07-20 03:33
DX: R51 Headache (principal); Z53.21 Procedure and treatment not carried out due to patient leaving prior to being seen by health care provider; R56.9 Unspecified convulsions; F43.10 Post-traumatic stress disorder, unspecified; Z79.899 Other long term (current) drug therapy
CPT/HCPCS: 83735

== ENCOUNTER 2017-12-05 07:48 | Emergency (ER) | payer OTHER ==
[2017-12-05 09:02] LABS: ANION GAP 10 MEQ/L (8-16); BLOOD UREA NITROGEN 14 MG/DL (7-18); CALCIUM LEVEL 8.8 MG/DL (8.5-10.1); CARBON DIOXIDE LEVEL 25 MEQ/L (21-32); CHLORIDE LEVEL 104 MEQ/L (98-107); CREATININE FOR GFR 1.09 MG/DL (0.70-1.30); GLOMERULAR FILTRATION RATE > 60.0 (>60); GLUCOSE, FASTING 91 MG/DL (70-100); POTASSIUM SERUM 3.9 MEQ/L (3.5-5.1); SODIUM LEVEL 139 MEQ/L (136-145)
== END 2017-12-05 09:25 | disposition home or self-care (01) ==
LOC: M ED 07:48
DX: R56.9 Unspecified convulsions (principal); F43.10 Post-traumatic stress disorder, unspecified; Z79.899 Other long term (current) drug therapy
CPT/HCPCS: 93005